=== PATIENT | female | born 1960 | race Caucasian/White ===

== ENCOUNTER 2022-09-05 19:08 | Inpatient (IN) | payer OTHER ==
[~2022-09-05 19:08] MED LIST: Iopamidol 370 76% 100 ML VIAL ONE
[2022-09-05] MEDS ORDERED: Azithromycin 500 MG VIAL ONE (20:00)
[2022-09-05] MEDS ORDERED: cefTRIAXone\\ROCEPHIN 1 GM VIAL ONE (20:00)
[2022-09-05 20:10] LABS: MDiff Complete? YES; Mean Corpuscular HGB CONC 33.8 g/dL (32.0-36.0); Mean Corpuscular Hemoglobin 29.5 pg (27.0-33.0); Mean Corpuscular Volume 87.5 fl (81.6-98.3); Mean Platelet Volume 9.9 fl (7.4-10.4); Platelet Count 266 10x3/uL (150-450); RBC Distribution Width 13.5 % (11.5-14.5); White Blood Cell (WBC) Count 32.8 10x3/uL (3.5-10.5)
[2022-09-05 20:20] LABS: ALT (SGPT) 14 U/L (8-55); AST (SGOT) 13 U/L (5-34); Alkaline Phosphatase 62 U/L (40-110); Anion Gap 18 mmol/L (10-20); BUN (Urea Nitrogen) 20 mg/dL (9.8-20.1); Bilirubin, Total 1.1 mg/dL (0.2-1.2); Calc. Creatinine Clearance 0 mL/min (70-130); Calcium 8.8 mg/dL (7.8-10.44); Carbon Dioxide 23 mmol/L (23-31); Chloride 94 mmol/L (98-107); Estimated GFR 76; Globulin 2.3 g/dL (2.4-3.5); Glucose 114 mg/dL (80-115); Potassium 4.4 mmol/L (3.5-5.1); Protein, Total 6.3 g/dL (5.8-8.1); Sodium 131 mmol/L (136-145)
[2022-09-05 20:34] LABS: Band 14 % (5-11); Monocytes 6 % (0-10); Neutrophil 80 % (42-75)
[2022-09-05 20:35] LABS: Platelet Morphology Comment Appears Adequate
[2022-09-05] MEDS ORDERED: Ketorolac Tromethamine 30 MG/ML VIAL ONE (21:55)
[2022-09-05] MEDS ORDERED: Communication Order-Pharmacy FS ONE (22:11)
[2022-09-05] MEDS ORDERED: Azithromycin 500 MG in Sodium Chloride 0.9% 250 ML 250 ML IVPB SCH (22:15)
[2022-09-05] MEDS ORDERED: cefTRIAXone\\ROCEPHIN 2 GM in Sodium Chloride 0.9% 100 ML IVPB SCH (22:15)
[2022-09-05] MEDS ORDERED: Guaifenesin DM 100-10/5 ML UDCUP PO PRN (22:17)
[2022-09-05] MEDS ORDERED: cefTRIAXone\\ROCEPHIN 1 GM in Sodium Chloride 0.9% 100 ML IVPB SCH (22:45)
[2022-09-05 23:14] LABS: Lactic Acid 1.4 mmol/L (0.5-2.2)
[2022-09-06 01:46] LABS: SARS-CoV-2 NAA Rapid Test Not Detected (NotDetected)
[2022-09-06] MEDS: Lactated Ringer's 1,000 ML IV SCH ×5 (03:10→23:58)
[2022-09-06 04:00] LABS: Hemoglobin 11.7 g/dL (12.0-15.5); MDiff Complete? YES; Mean Corpuscular HGB CONC 31.9 g/dL (32.0-36.0); Mean Corpuscular Hemoglobin 29.5 pg (27.0-33.0); Mean Corpuscular Volume 92.7 fl (81.6-98.3); Platelet Count 236 10x3/uL (150-450); RBC Distribution Width 13.8 % (11.5-14.5); Red Blood Cell (RBC) Count 3.96 10x6/uL (3.90-5.03); White Blood Cell (WBC) Count 34.8 10x3/uL (3.5-10.5)
[2022-09-06 04:05] LABS: Anion Gap 15 mmol/L (10-20); BUN (Urea Nitrogen) 19 mg/dL (9.8-20.1); Calc. Creatinine Clearance 128 mL/min (70-130); Carbon Dioxide 21 mmol/L (23-31); Chloride 100 mmol/L (98-107); Estimated GFR 84; Glucose 109 mg/dL (80-115); Magnesium 1.4 mg/dL (1.6-2.6); Potassium 3.9 mmol/L (3.5-5.1); Sodium 132 mmol/L (136-145)
[2022-09-06 04:22] LABS: Legionella Urinary Ag Negative (Negative); Strep pneumo Urine Ag NEGATIVE (NEGATIVE)
[2022-09-06 04:51] LABS: Band 10 % (5-11); Lymphocytes 4 % (21-51); Monocytes 8 % (0-10); Neutrophil 77 % (42-75); Reactive Lymphocytes 1 % (0-10)
[2022-09-06 05:20] LABS: Macrocytosis SLIGHT = 6-15 cells (100X) (0-5/hpf); Platelet Clumps SLIGHT; Platelet Morphology Comment Appears Adequate
[2022-09-06] MEDS ORDERED: FLU VACC QS2022-23(6MOS UP)/PF 60 MCG/0.5 ML SYRINGE IM ONE (09:00)
[2022-09-06] MEDS: Acetaminophen 325 MG TAB PO PRN (09:12)
[2022-09-06] MEDS: Magnesium 2 GM/50 ML(in water) 2 GM in Premix Bag 1 BAG IVPB SCH ×2 (12:42→14:14)
[2022-09-06 16:51] LABS: Hemoglobin 10.7 g/dL (12.0-15.5); Mean Corpuscular HGB CONC 32.9 g/dL (32.0-36.0); Mean Corpuscular Hemoglobin 29.6 pg (27.0-33.0); Mean Corpuscular Volume 89.8 fl (81.6-98.3); Mean Platelet Volume 10.4 fl (7.4-10.4); Platelet Count 250 10x3/uL (150-450); RBC Distribution Width 13.9 % (11.5-14.5); Red Blood Cell (RBC) Count 3.62 10x6/uL (3.90-5.03); White Blood Cell (WBC) Count 36.8 10x3/uL (3.5-10.5)
[2022-09-06 16:54] LABS: MDiff Complete? YES; Manual Diff?? YES
[2022-09-06 16:56] LABS: Band 9 % (5-11); Eosinophils 1 % (0-10); Lymphocytes 12 % (21-51); Monocytes 1 % (0-10); Neutrophil 77 % (42-75)
[2022-09-06 17:00] LABS: Platelet Morphology Comment Appears Adequate; RBC Morphology Normal
[2022-09-06] MEDS: guaiFENesin 100 MG/5 ML UDCUP PO PRN (18:14)
[2022-09-06] MEDS: cefTRIAXone\\ROCEPHIN 2 GM in Sodium Chloride 0.9% 100 ML IVPB SCH (20:00)
[2022-09-06] MEDS: Azithromycin 500 MG in Sodium Chloride 0.9% 250 ML 250 ML IVPB SCH (21:38)
[2022-09-06] MEDS ORDERED: Ondansetron PF 4 MG/2 ML Vial IVP SCH (23:15)
[2022-09-07 04:50] LABS: Hemoglobin 12.3 g/dL (12.0-15.5); MDiff Complete? YES; Mean Corpuscular Hemoglobin 29.7 pg (27.0-33.0); Mean Corpuscular Volume 90.1 fl (81.6-98.3); Mean Platelet Volume 10.8 fl (7.4-10.4); Platelet Count 258 10x3/uL (150-450); RBC Distribution Width 13.7 % (11.5-14.5); Red Blood Cell (RBC) Count 4.14 10x6/uL (3.90-5.03); White Blood Cell (WBC) Count 35.4 10x3/uL (3.5-10.5)
[2022-09-07 05:04] LABS: Anion Gap 14 mmol/L (10-20); BUN (Urea Nitrogen) 17 mg/dL (9.8-20.1); Calc. Creatinine Clearance 149 mL/min (70-130); Calcium 8.9 mg/dL (7.8-10.44); Carbon Dioxide 23 mmol/L (23-31); Chloride 99 mmol/L (98-107); Estimated GFR 99; Glucose 133 mg/dL (80-115); Potassium 3.9 mmol/L (3.5-5.1); Sodium 132 mmol/L (136-145)
[2022-09-07 05:15] LABS: Band 5 % (5-11); Lymphocytes 4 % (21-51); Monocytes 2 % (0-10); Neutrophil 89 % (42-75)
[2022-09-07 05:16] LABS: Hypochromia SLIGHT = 6-15 cells (100X) (0-5/hpf); Platelet Morphology Comment Appears Adequate
[2022-09-07] MEDS ORDERED: Lisinopril 20 MG TAB PO SCH ×2 (09:00→18:15)
[2022-09-07] MEDS: Hydrochlorothiazide 25 MG TAB PO SCH (09:41)
[2022-09-07] MEDS: Lactated Ringer's 1,000 ML IV SCH ×2 (09:42→15:29)
[2022-09-07] MEDS: guaiFENesin 100 MG/5 ML UDCUP PO PRN ×2 (09:46→15:29)
[2022-09-07] MEDS: hydrALAZINE 20 MG/ML VIAL SLOW IVP PRN ×2 (14:12→23:51)
[2022-09-07] MEDS: Acetaminophen 325 MG TAB PO PRN ×2 (18:19→23:51)
[2022-09-07] MEDS: Fioricet 325/50/40 mg Tablet PO PRN (18:19)
[2022-09-07] MEDS ORDERED: Sodium Chloride 0.9% 100 ML ONE (20:21)
[2022-09-07] MEDS: Lisinopril 20 MG TAB PO SCH (20:28)
[2022-09-07] MEDS: Azithromycin 500 MG in Sodium Chloride 0.9% 250 ML 250 ML IVPB SCH (20:45)
[2022-09-07] MEDS: cefTRIAXone\\ROCEPHIN 2 GM in Sodium Chloride 0.9% 100 ML IVPB SCH (20:45)
[2022-09-07] MEDS ORDERED: Zolpidem Tartrate 5 MG TAB PO SCH (23:15)
[2022-09-08] MEDS: guaiFENesin 100 MG/5 ML UDCUP PO PRN ×2 (00:11→20:25)
[2022-09-08] MEDS: Acetaminophen 325 MG TAB PO PRN (03:24)
[2022-09-08] MEDS: Fioricet 325/50/40 mg Tablet PO PRN ×2 (04:24→19:18)
[2022-09-08] MEDS: hydrALAZINE 20 MG/ML VIAL SLOW IVP PRN (04:25)
[2022-09-08 05:04] LABS: Hemoglobin 11.1 g/dL (12.0-15.5); Mean Corpuscular HGB CONC 32.7 g/dL (32.0-36.0); Mean Corpuscular Hemoglobin 29.2 pg (27.0-33.0); Mean Corpuscular Volume 89.2 fl (81.6-98.3); Mean Platelet Volume 10.8 fl (7.4-10.4); Platelet Count 297 10x3/uL (150-450); RBC Distribution Width 13.8 % (11.5-14.5); White Blood Cell (WBC) Count 27.3 10x3/uL (3.5-10.5)
[2022-09-08 05:10] LABS: MDiff Complete? YES
[2022-09-08 05:18] LABS: Anion Gap 17 mmol/L (10-20); BUN (Urea Nitrogen) 11 mg/dL (9.8-20.1); Calc. Creatinine Clearance 168 mL/min (70-130); Carbon Dioxide 22 mmol/L (23-31); Chloride 95 mmol/L (98-107); Estimated GFR 102; Glucose 144 mg/dL (80-115); Potassium 3.7 mmol/L (3.5-5.1); Sodium 130 mmol/L (136-145)
[2022-09-08 05:48] LABS: Band 1 % (5-11); Hypochromia SLIGHT = 6-15 cells (100X) (0-5/hpf); Lymphocytes 4 % (21-51); Monocytes 2 % (0-10); Neutrophil 93 % (42-75); Nucleated RBC 1 % (0); Platelet Morphology Comment Appears Adequate
[2022-09-08] MEDS ORDERED: Ondansetron PF 4 MG/2 ML Vial IVP SCH (06:15)
[2022-09-08] MEDS ORDERED: Morphine 2 MG/ML VIAL SLOW IVP SCH (08:00)
[2022-09-08] MEDS: Hydrochlorothiazide 25 MG TAB PO SCH (08:48)
[2022-09-08] MEDS: Lisinopril 20 MG TAB PO SCH ×2 (08:48→20:22)
[2022-09-08] MEDS: Lactated Ringer's 1,000 ML IV SCH (10:53)
[2022-09-08] MEDS ORDERED: Melatonin 3 MG TAB PO PRN (19:37)
[2022-09-08] MEDS: cefTRIAXone\\ROCEPHIN 2 GM in Sodium Chloride 0.9% 100 ML IVPB SCH (20:24)
[2022-09-08] MEDS: Azithromycin 500 MG in Sodium Chloride 0.9% 250 ML 250 ML IVPB SCH (21:22)
[2022-09-09] MEDS: Fioricet 325/50/40 mg Tablet PO PRN ×3 (04:02→14:35)
[2022-09-09 04:32] LABS: #Basophils 0.1 10x3/uL (0.0-0.2); #Eosinphils 0.1 10x3/uL (0.0-0.5); #Monocytes 0.8 10x3/uL (0.0-1.1); #Neutrophils 12.7 10x3/uL (1.5-8.4); %Basophils 0.4 % (0.0-2.0); %Eosinophils 0.4 % (0.0-6.0); %Lymphocytes 13.5 % (18.0-47.0); %Monocytes 4.8 % (0.0-10.0); %Neutrophils 79.8 % (40.0-75.0); Hemoglobin 11.4 g/dL (12.0-15.5); Mean Corpuscular HGB CONC 32.9 g/dL (32.0-36.0); Mean Corpuscular Hemoglobin 29.2 pg (27.0-33.0); Mean Platelet Volume 10.7 fl (7.4-10.4); Platelet Count 264 10x3/uL (150-450); RBC Distribution Width 13.7 % (11.5-14.5); White Blood Cell (WBC) Count 15.9 10x3/uL (3.5-10.5)
[2022-09-09 04:48] LABS: Anion Gap 15 mmol/L (10-20); BUN (Urea Nitrogen) 9 mg/dL (9.8-20.1); Calc. Creatinine Clearance 168 mL/min (70-130); Carbon Dioxide 28 mmol/L (23-31); Chloride 93 mmol/L (98-107); Estimated GFR 102; Glucose 123 mg/dL (80-115); Potassium 3.5 mmol/L (3.5-5.1); Sodium 132 mmol/L (136-145)
[2022-09-09] MEDS: Lactated Ringer's 1,000 ML IV SCH (09:32)
[2022-09-09] MEDS: Acetaminophen 325 MG TAB PO PRN (09:33)
[2022-09-09] MEDS: guaiFENesin 100 MG/5 ML UDCUP PO PRN (09:34)
[2022-09-09] MEDS: Hydrochlorothiazide 25 MG TAB PO SCH (09:35)
[2022-09-09] MEDS: Lisinopril 20 MG TAB PO SCH ×2 (09:35→20:17)
[2022-09-09] MEDS: hydrALAZINE 20 MG/ML VIAL SLOW IVP PRN (12:47)
[2022-09-09 16:37] VITALS: TEMP 98.3
[2022-09-09] MEDS ORDERED: NIFEdipine XL 60 MG TAB PO SCH (16:45)
[2022-09-09] MEDS ORDERED: NIFEdipine XL 30 MG TAB PO SCH (16:45)
[2022-09-09] MEDS ORDERED: niCARdipine 25 MG in Sodium Chloride 0.9% 250 ML 250 ML IVPB SCH ×2 (16:45→17:00)
[2022-09-09] MEDS: cefTRIAXone\\ROCEPHIN 2 GM in Sodium Chloride 0.9% 100 ML IVPB SCH (20:00)
[2022-09-09] MEDS: Azithromycin 500 MG in Sodium Chloride 0.9% 250 ML 250 ML IVPB SCH (23:16)
[2022-09-10 04:05] LABS: Anion Gap 15 mmol/L (10-20); BUN (Urea Nitrogen) 8 mg/dL (9.8-20.1); Calc. Creatinine Clearance 162 mL/min (70-130); Calcium 9.1 mg/dL (7.8-10.44); Carbon Dioxide 31 mmol/L (23-31); Chloride 97 mmol/L (98-107); Estimated GFR 101; Glucose 110 mg/dL (80-115); Potassium 3.1 mmol/L (3.5-5.1); Sodium 140 mmol/L (136-145)
[2022-09-10 04:09] LABS: #Basophils 0.1 10x3/uL (0.0-0.2); #Eosinphils 0.1 10x3/uL (0.0-0.5); #Monocytes 1.2 10x3/uL (0.0-1.1); #Neutrophils 9.3 10x3/uL (1.5-8.4); %Basophils 0.7 % (0.0-2.0); %Eosinophils 0.9 % (0.0-6.0); %Lymphocytes 17.7 % (18.0-47.0); %Monocytes 8.9 % (0.0-10.0); %Neutrophils 68.4 % (40.0-75.0); Hemoglobin 11.7 g/dL (12.0-15.5); Mean Corpuscular HGB CONC 32.9 g/dL (32.0-36.0); Mean Corpuscular Hemoglobin 28.8 pg (27.0-33.0); Mean Corpuscular Volume 87.7 fl (81.6-98.3); Mean Platelet Volume 9.9 fl (7.4-10.4); Platelet Count 327 10x3/uL (150-450); RBC Distribution Width 13.8 % (11.5-14.5); Red Blood Cell (RBC) Count 4.06 10x6/uL (3.90-5.03); White Blood Cell (WBC) Count 13.6 10x3/uL (3.5-10.5)
[2022-09-10] MEDS: Acetaminophen 325 MG TAB PO PRN (04:49)
[2022-09-10 07:33] VITALS: BMI 41.2
[2022-09-10] MEDS ORDERED: Electrolyte Replacement Protocol 1 EACH FS SCH (07:45)
[2022-09-10] MEDS ORDERED: Potassium Chloride 20 MEQ TAB PO SCH (08:00)
[2022-09-10] MEDS: Lisinopril 20 MG TAB PO SCH ×2 (08:30→20:53)
[2022-09-10] MEDS: Hydrochlorothiazide 25 MG TAB PO SCH (08:31)
[2022-09-10] MEDS: NIFEdipine XL 60 MG TAB PO SCH (08:42)
[2022-09-10 09:49] LABS: Magnesium 1.5 mg/dL (1.6-2.6)
[2022-09-10] MEDS ORDERED: Magnesium 2 GM/50 ML(in water) 2 GM in Premix Bag 1 BAG IVPB SCH (10:15)
[2022-09-10] MEDS: cefTRIAXone\\ROCEPHIN 2 GM in Sodium Chloride 0.9% 100 ML IVPB SCH (20:53)
[2022-09-11 04:02] LABS: #Basophils 0.1 10x3/uL (0.0-0.2); #Eosinphils 0.2 10x3/uL (0.0-0.5); #Neutrophils 8.1 10x3/uL (1.5-8.4); %Basophils 0.9 % (0.0-2.0); %Eosinophils 1.6 % (0.0-6.0); %Neutrophils 62.5 % (40.0-75.0); Hemoglobin 11.4 g/dL (12.0-15.5); Mean Corpuscular HGB CONC 32.7 g/dL (32.0-36.0); Mean Corpuscular Hemoglobin 28.9 pg (27.0-33.0); Mean Corpuscular Volume 88.6 fl (81.6-98.3); Mean Platelet Volume 9.7 fl (7.4-10.4); Platelet Count 344 10x3/uL (150-450); RBC Distribution Width 13.9 % (11.5-14.5); Red Blood Cell (RBC) Count 3.94 10x6/uL (3.90-5.03); White Blood Cell (WBC) Count 12.9 10x3/uL (3.5-10.5)
[2022-09-11 04:09] LABS: Anion Gap 14 mmol/L (10-20); BUN (Urea Nitrogen) 17 mg/dL (9.8-20.1); Calc. Creatinine Clearance 161 mL/min (70-130); Carbon Dioxide 30 mmol/L (23-31); Chloride 99 mmol/L (98-107); Estimated GFR 101; Glucose 118 mg/dL (80-115); Magnesium 1.9 mg/dL (1.6-2.6); Potassium 3.3 mmol/L (3.5-5.1); Sodium 140 mmol/L (136-145)
[2022-09-11] MEDS ORDERED: Magnesium 2 GM/50 ML(in water) 2 GM in Premix Bag 1 BAG IVPB SCH (06:00)
[2022-09-11] MEDS ORDERED: Potassium Chloride 20 MEQ TAB PO SCH (06:00)
[2022-09-11 07:20] VITALS: BP 144/69
[2022-09-11] MEDS: Hydrochlorothiazide 25 MG TAB PO SCH (07:50)
[2022-09-11] MEDS: NIFEdipine XL 60 MG TAB PO SCH (07:55)
[2022-09-11] MEDS ORDERED: Lisinopril 20 MG TAB PO SCH (09:00)
== END 2022-09-11 10:02 | disposition home or self-care (01) | DRG 871 ==
LOC: CSHERS 19:08 → CSHICU 22:13 → UNDOADMIN 09-06 00:51 → CSHICU 09-06 13:47 → CSHTELE 09-06 13:47 → CSHICU 09-09 17:18
PROVIDERS: ADMIT Family Medicine; ATTEND Hospitalist
DX: A41.9 Sepsis, unspecified organism (principal); J18.9 Pneumonia, unspecified organism; J96.01 Acute respiratory failure with hypoxia; E87.1 Hypo-osmolality and hyponatremia; Z68.41 Body mass index [BMI] 40.0-44.9, adult; I16.1 Hypertensive emergency; R65.20 Severe sepsis without septic shock; E66.9 Obesity, unspecified; Z20.822 Contact with and (suspected) exposure to COVID-19
CPT/HCPCS: 36415; 70450; 71045; 71275; 80048; 80053; 83605; 83735; 83880; 84443; 84484; 85025; 87040; 87449; 87899; 93005; 94760; 96361; 96365; 96375; J0360; J0456; J0696; J1650; J1885; J2272; J2405; J3475; J3490; J7050; J7120; Q9967

== ENCOUNTER 2024-05-07 12:10 | Emergency (ER) | payer OTHER ==
[~2024-05-07 12:10] MED LIST changes: +Iopamidol 300 61% 100 ML VIAL FS ONE; -Iopamidol 370 76% 100 ML VIAL ONE
[2024-05-07 12:50] LABS: #Basophils 0.04 10x3/uL (0.0-0.2); #Monocytes 0.62 10x3/uL (0.0-1.1); #Neutrophils 12.27 10x3/uL (1.5-8.4); %Basophils 0.3 % (0.0-2.0); %Eosinophils 0.7 % (0.0-6.0); %Lymphocytes 5.8 % (18.0-47.0); %Monocytes 4.5 % (0.0-10.0); %Neutrophils 88.2 % (40.0-75.0); Hematocrit 41.4 % (34.9-44.5); Hemoglobin 13.6 g/dL (12.0-15.5); Mean Corpuscular HGB CONC 32.9 g/dL (32.0-36.0); Mean Corpuscular Hemoglobin 28.9 pg (27.0-33.0); Mean Corpuscular Volume 87.9 fL (81.6-98.3); Mean Platelet Volume 9.9 fL (7.4-10.4); Platelet Count 249 10x3/uL (150-450); RBC Distribution Width 12.9 % (11.5-14.5); Red Blood Cell (RBC) Count 4.71 10x6/uL (3.90-5.03); White Blood Cell (WBC) Count 13.9 10x3/uL (3.5-10.5)
[2024-05-07 13:06] LABS: ALT (SGPT) 79 U/L (8-55); AST (SGOT) 137 U/L (5-34); Albumin 3.8 g/dL (3.4-4.8); Alkaline Phosphatase 85 U/L (40-110); Anion Gap 13 mmol/L (10-20); BUN (Urea Nitrogen) 21 mg/dL (9.8-20.1); Calc. Creatinine Clearance 0 mL/min (70-130); Calcium 9.5 mg/dL (7.8-10.44); Carbon Dioxide 28 mmol/L (23-31); Chloride 98 mmol/L (98-107); Estimated GFR 77; Globulin 2.9 g/dL (2.4-3.5); Glucose 128 mg/dL (80-115); Lipase 17 U/L (8-78); Potassium 4.3 mmol/L (3.5-5.1); Protein, Total 6.7 g/dL (5.8-8.1); Sodium 135 mmol/L (136-145)
[2024-05-07 13:23] LABS: Bilirubin Neg (Negative); Blood, Urine Negative (Negative); Glucose, Urine (Dipstick) Normal (Negative); Ketone, Urine Negative (Negative); Leukocyte Negative (Negative); Nitrite Negative (Negative); Protein, Urine (Dipstick) 30 mg/dl (Neg-Trace); Urobilinogen Normal mg/dL (Less than 2)
[2024-05-07 13:24] LABS: Clarity Clear (Clear)
[2024-05-07 13:30] LABS: CAUTI Indications for Culture Pelvic or flank pain; RBC/HPF None Seen HPF (0-3); WBC/HPF 0-3 HPF (0-3)
[2024-05-07 13:31] LABS: Bacteria/HPF 4+ HPF (None Seen); Mucous/LPF 2+ LPF (<2+); Urine Culture Reflex No No
[2024-05-07] MEDS ORDERED: Famotidine/PF 20 mg/2ml Vial ONE (13:35)
[2024-05-07] MEDS ORDERED: Morphine 4 MG/ML VIAL ONE (13:35)
[2024-05-07] MEDS ORDERED: Ondansetron PF 4 MG/2 ML Vial ONE (13:35)
[2024-05-07 13:50] LABS: Troponin I Less than 0.010 ng/mL (< 0.028)
== END 2024-05-07 16:57 | disposition home or self-care (01) ==
LOC: CSHERS 12:10
DX: R10.10 Upper abdominal pain, unspecified (principal); R11.2 Nausea with vomiting, unspecified; I10 Essential (primary) hypertension
CPT/HCPCS: 36416; 71045; 74177; 76705; 80053; 81001; 83690; 84484; 85025; 93005; 96374; 96375; J2272; J2405; J3490; Q9967